=== PATIENT | female | born 1945 | race Caucasian/White ===

== ENCOUNTER 2017-10-06 09:54 | Day surgery (SDC) | payer MEDICARE, OTHER ==
[~2017-10-06 09:54] MED LIST: RINGER'S SOLUTION,LACTATED 1,000 ML IV PRN; ceFAZolin SODIUM 1 GM VIAL IV PRN
[2017-10-06] MEDS ORDERED: RINGER'S SOLUTION,LACTATED 1,000 ML IV ONE (10:41)
[2017-10-06] MEDS ORDERED: BUPIVACAINE HCL 50 ML VIAL IJ ONE (11:32)
[2017-10-06 13:15] VITALS: BP 108/50
== END 2017-10-06 09:55 | disposition home or self-care (01) ==
LOC: AMB 09:54
PROVIDERS: ATTEND Orthopaedic Surgery
PROC: 0XBH0ZZ Excision of Left Wrist Region, Open Approach (ICD-10-PCS; principal; 2017-10-06 11:15)
DX: M67.432 Ganglion, left wrist (principal); I10 Essential (primary) hypertension; E03.9 Hypothyroidism, unspecified; E78.5 Hyperlipidemia, unspecified; F32.9 Major depressive disorder, single episode, unspecified; F41.9 Anxiety disorder, unspecified; Z68.24 Body mass index [BMI] 24.0-24.9, adult

== ENCOUNTER 2018-01-19 11:43 | Day surgery (SDC) | payer MEDICARE, OTHER ==
[~2018-01-19 11:43] MED LIST changes: -ceFAZolin SODIUM 1 GM VIAL IV PRN
[2018-01-19] MEDS ORDERED: RINGER'S SOLUTION,LACTATED 1,000 ML IV ONE ×2 (12:36→13:40)
[2018-01-19] MEDS ORDERED: RINGER'S SOLUTION,LACTATED 1,000 ML IV PRN (14:22)
[2018-01-19 14:55] VITALS: BP 119/53
--- NOTE | 2018-01-19 18:57 | OR ---
Operative Report - Dictated Report Narrative: OPERATIVE REPORT DATE OF OPERATION: 01/19/2018 PREOPERATIVE DIAGNOSIS: History of colon polyps. Family history of colon cancer. POSTOPERATIVE DIAGNOSIS: Severe sigmoid diverticulosis OPERATION: Colonoscopy SURGEON: Yvette Meyer MD ANESTHESIA: EMERITA Molina CRNA INDICATIONS FOR PROCEDURE: The patient is a 72-year-old female referred by Dr. Vazquez. The patient has had 5 previous colonoscopies with tubular adenomas removed on the last 3 exams. The patient's mother had colon cancer at age 50. The patient is currently asymptomatic FINDINGS: Severe sigmoid diverticulosis with difficult exam, otherwise normal exam to the cecum NARRATIVE OF PROCEDURE: The patient was identified in the holding area, and prior to the administration of anesthetic, a multidisciplinary timeout was observed. With the patient in the left lateral position and after the administration of intravenous sedation, the perineum was inspected. There was no evidence of pilonidal disease or skin breakdown. The external appearance of the anus was normal. Sphincter tone was good. The flexible fiberoptic colonoscope was inserted into the rectum which was insufflated with air. The rectal mucosa and submucosal vascular pattern appeared normal, the prep was seen to be complete. The scope was advanced through the sigmoid colon, which contained numerous large non-impacted noninflamed diverticular openings. There was sharp angulation at several levels requiring withdrawal and re-advancement of the scope to successfully negotiate the sigmoid. The scope was eventually advanced Up the descending colon, and around the splenic flexure where the triangular haustral architecture of the transverse colon was seen. The scope was advanced across the transverse colon, around the hepatic flexure to the cecum, where the confluence of tenia and the ileocecal valve were identified. The mucosa at this level appeared normal. The scope was then slowly withdrawn in a circular fashion so that all aspects of colonic mucosa were inspected. The colon was normal in caliber with a redundant/tortuous sigmoid segment. The haustral architecture appeared well preserved throughout with no evidence of external compression. The mucosa and submucosal vascular pattern appeared normal, specifically there was no gross evidence to suggest colitis or inflammatory bowel disease and no AV malformations were seen. The diverticulosis was severe in degree but confined primarily to the sigmoid colon. No polyps were encountered. The scope was gradually withdrawn to the level of the rectum. As much insufflated air as possible was removed. The scope was withdrawn from the patient and the procedure terminated. The patient tolerated the anesthetic and procedure well without complication and was transferred back to the ambulatory surgery area awake and in stable condition. The patient remained stable throughout a period of postoperative observation. She denied abdominal discomfort, was able to tolerate by mouth intake, and was up without assistance. I shared the operative findings with the patient and she was given copies of the photographs which appear in the medical record. She was discharged home with instructions not to engage in hazardous activity today , but may resume normal activity tomorrow, and advance diet as tolerated. She is to continue those medications as listed in the history and physical exam. A pamphlet on diverticular disease was reviewed with her and given to her. The mechanism of action of Benefiber and MiraLAX were explained and recommended due to her diverticular disease. RECOMMENDATION: Colon surveillance in 5 years depending upon findings or symptoms Reviewed and electronically signed
== END 2018-01-19 11:44 | disposition home or self-care (01) ==
LOC: AMB 11:43
PROVIDERS: ATTEND Surgery
PROC: 0DJD8ZZ Inspection of Lower Intestinal Tract, Via Natural or Artificial Opening Endoscopic (ICD-10-PCS; principal; 2018-01-19)
DX: Z12.11 Encounter for screening for malignant neoplasm of colon (principal); K57.30 Diverticulosis of large intestine without perforation or abscess without bleeding; I10 Essential (primary) hypertension; E78.5 Hyperlipidemia, unspecified; E03.9 Hypothyroidism, unspecified; F41.9 Anxiety disorder, unspecified; Z86.010 Personal history of colon polyps; Z80.0 Family history of malignant neoplasm of digestive organs; Z68.24 Body mass index [BMI] 24.0-24.9, adult